=== PATIENT | female | born 1955 | race Caucasian/White ===

== ENCOUNTER 2019-03-06 14:25 | Emergency (ER) | payer BC, MEDICARE ==
[~2019-03-06] VITALS: Ht 170.2 cm; Wt 127.0 kg
[~2019-03-06 14:25] MED LIST: ASPI-1153 PO; BENA20TA9 PO; CLOP75TA2 PO; METO-442 PO
[2019-03-06 14:30] VITALS: BP_SYST 155
--- NOTE | 2019-03-06 17:06 | NUR ---
Patient to ER bed 6 to gown for evaluation. Side rails up.
--- NOTE | 2019-03-06 17:10 | NUR ---
Patient arrived in the ED accompanied by son c/o pain on her back, bilateral shoulder and neck that started 2 days ago. Denied any chest pain, headache, or shortness of breath. Denied fevers, chills, nausea, or vomiting. Patient is alert and oriented x4, respirations even and unlabored, speaking in full sentences, and ambulating with a steady gait. VSS, pain level 3/10. Son at bedside. Informed of approximate wait time. Instructed to notify ED staff for any changes in condition or worsening of symptoms. Patient verbalized understanding.
--- NOTE | 2019-03-06 17:24 | NUR ---
ER Dr. Shay at bedside examining patient.
[2019-03-06] MEDS ORDERED: KETOROLAC TROMETHAMINE 60 MG/2 ML VIAL IM ONE (17:30)
--- NOTE | 2019-03-06 17:33 | NUR ---
Administered Toradol 60mg IM as ordered by Dr. Shay. Patient tolerated the medications well. See eMAR for details.
--- NOTE | 2019-03-06 17:45 | NUR ---
X-ray done at bedside as ordered by Dr. Shay. Patient tolerated the procedure well.
--- NOTE | 2019-03-06 18:20 | NUR ---
ER Dr. Shay at bedside giving discharge instructions to the patient.
--- NOTE | 2019-03-06 18:31 | NUR ---
Patient given written and verbal discharge instructions and verbalizes understanding. ER MD discussed with patient the results and treatment provided. Patient in stable condition. ID arm band removed. Rx of Tramadol and Soma given. Patient educated on pain management and to follow up with PMD. Pain Scale 0/10. Opportunity for questions provided and answered. Medication side effect fact sheet provided.
[2019-03-06 18:46] VITALS: BP_SYST 134
== END 2019-03-06 18:46 | disposition home or self-care (01) ==
LOC: SED 14:25
DX: M54.5 Low back pain (principal); M54.6 Pain in thoracic spine; I11.0 Hypertensive heart disease with heart failure; I50.9 Heart failure, unspecified; I25.2 Old myocardial infarction; I48.91 Unspecified atrial fibrillation; Z88.0 Allergy status to penicillin; Z88.8 Allergy status to other drugs, medicaments and biological substances; Z88.6 Allergy status to analgesic agent; Z79.82 Long term (current) use of aspirin; Z79.899 Other long term (current) drug therapy
CPT/HCPCS: 72072; 72100; 93005; 96372; 99283; J1885

== ENCOUNTER 2019-03-15 15:34 | Inpatient (IN) | payer BC ==
[~2019-03-15] VITALS: Ht 170.2 cm; Wt 131.6 kg
[2019-03-15 15:40] VITALS: BP_SYST 142
--- NOTE | 2019-03-15 15:40 | NUR ---
Patient to ER bed to gown for evaluation. Side rails up.
--- NOTE | 2019-03-15 15:45 | NUR ---
Patient presents to ER C/O bilat feet pain. Patient A&Ox4, BIB BLS to ER, skin pink and warm, pain 11/23, denies N/V/D. Patient state bilat foot pain increased and unable to ambulate, called 911 by self from home
--- NOTE | 2019-03-15 15:45 | NUR ---
Note nonajeovany in ED - 03/15/19 at 1657 by CONRADO Patient presents to ER C/O Right shoulder pain. Patient arrived to ER BLS, A&Ox3, afebrile, skin pink and warm, pain 08/23, denies N/V/D. Patient stated he tripped over own feet, fell an cement at home.
--- NOTE | 2019-03-15 15:50 | NUR ---
ER Dr. Oviedo at bedside examining patient.
[2019-03-15] MEDS ORDERED: KETOROLAC TROMETHAMINE 60 MG/2 ML VIAL IM ONE (16:00)
[2019-03-15 16:31] LABS: BASOPHILS % (AUTO) 0.3 % (0.0-2.0); EOSINOPHILS % (AUTO) 0.1 % (0.0-4.0); HEMATOCRIT 36.4 % (36-48); HEMOGLOBIN 12.2 g/dL (12.0-16.0); LYMPHOCYTES # (AUTO) 0.7 K/uL (1.0-5.5); LYMPHOCYTES % (AUTO) 4.6 % (20.5-51.5); MEAN CORPUSCULAR HEMOGLOBIN 31 pg (27-31); MEAN CORPUSCULAR HGB CONC 34 % (32-36); MEAN CORPUSCULAR VOLUME 91 fL (79.0-98.0); MONOCYTES # (AUTO) 1.6 K/uL (0.0-1.0); MONOCYTES % (AUTO) 10.4 % (1.7-9.3); NEUTROPHILS % (AUTO) 84.6 % (40.0-70.0); PLATELET COUNT (AUTO) 229 K/uL (130-430); RED CELL DISTRIBUTION WIDTH 14.1 % (9.0-15.0); WHITE BLOOD COUNT (AUTO) 15.3 K/uL (4.8-10.8)
--- NOTE | 2019-03-15 16:46 | NUR ---
MEIDCATED THE PT W/ TORADOL PER MD ORDER. WILL REASSESS.
[2019-03-15 16:50] LABS: INR 1.1 (0.8-1.2); PROTHROMBIN TIME 10.6 SECS (9.5-12.5)
[2019-03-15 17:45] LABS: ERYTHROCYTE SEDIMENTATION RATE 50 MM/HR (0-20)
--- NOTE | 2019-03-15 18:01 | NUR ---
Patient to CT with RADIOLOGY STAFF VIA [facility].
[2019-03-15 18:13] LABS: CALCIUM 9.6 mg/dL (8.4-11.0); CREATININE 1.64 mg/dL (0.55-1.30); POTASSIUM 3.5 mmol/L (3.5-5.1)
[2019-03-15 18:17] LABS: ALBUMIN 3.3 g/dL (3.4-4.8); TOTAL BILIRUBIN 9.4 mg/dL (0.0-1.0); URIC ACID 9.7 mg/dL (2.4-7.0)
--- NOTE | 2019-03-15 19:20 | NUR ---
# 20 gauge angiocath placed to right arm. Use of asceptic technique. Opsite placed over site. Blood return noted. Blood for lab drawn from site. Flushed with 10 cc of normal saline. No evidence of infiltration noted. Patient tolerated well. Report given to Beverley CROUCH
--- NOTE | 2019-03-15 19:31 | NUR ---
Patient will be admitted to care of NOEMI. Admitted to MEDICAL SURGICAL unit. Awaiting bed placement. Belongings list completed. Complete and up to date summary report printed. SBAR report to be given at bedside with opportunity for questions.
[2019-03-15] MEDS ORDERED: LIP10 PO (19:34)
[2019-03-15] MEDS ORDERED: DILT60TA3 PO (19:34)
[2019-03-15] MEDS ORDERED: FURO20TA4 PO (19:34)
[2019-03-15 19:42] LABS: AMYLASE 21 U/L (0-100); LIPASE 50 U/L (73-393)
[2019-03-15] MEDS ORDERED: IBUP-1969 PO (20:02)
[2019-03-15] MEDS ORDERED: NITSL SL (20:02)
[2019-03-15] MEDS ORDERED: ASA81 PO (20:02)
[2019-03-15] MEDS ORDERED: POTA10TA15 PO (20:02)
[2019-03-15] MEDS ORDERED: ALBMDI INH (20:02)
[2019-03-15] MEDS ORDERED: CLOP75TA32 PO (20:02)
[2019-03-15] MEDS ORDERED: METO50TA7 PO (20:02)
--- NOTE | 2019-03-15 20:03 | NUR ---
Medication reconciliation completed with information provided by PT . Any prior medication reconciliation on file was reviewed and corrected.
--- NOTE | 2019-03-15 20:45 | NUR ---
Transfer to [facility]. IV present no sign or symptom of infiltration.
--- NOTE | 2019-03-15 21:05 | NUR ---
ADMISSION NOTE Received patient from ER via gurney. Patient admitted with diagnosis of PANCREATITIS. Patient oriented to hospital routine, call light, toileting and safety-patient verbalized understanding.
[2019-03-15 21:12] VITALS: BP_SYST 112
[2019-03-15 21:30] VITALS: BP_SYST 141
[2019-03-15] MEDS ORDERED: ALBUTEROL MDI INHALATION 8 GM INH INH SCH (21:45)
[2019-03-15] MEDS ORDERED: NITROGLYCERIN 0.4 MG TAB.SUBL SL SCH (21:45)
[2019-03-15] MEDS ORDERED: FLU VACC TS2019(65UP)/MF59C/PF 45 MCG/0.5 ML SYRINGE I.M. PRN (21:45)
[2019-03-15] MEDS ORDERED: ALBUTEROL SULFATE 0.083% 2.5 MG/3 ML VIAL.NEB INH PRN (21:45)
[2019-03-15] MEDS: NACL 0.9% 1,000 ML IV SCH (22:14)
--- NOTE | 2019-03-15 22:15 | NUR ---
IVF NS @ 100ML/HR STARTED ON HER LFA.DENIES ANY DISCOMFORT @ THIS TIME.
[2019-03-15] MEDS: LEVOFLOXACIN 500 MG/D5W 100 ML IV SCH (22:30)
[2019-03-15 22:51] VITALS: BP_SYST 112
--- NOTE | 2019-03-15 23:50 | NUR ---
GI Consultation Paged Reason for consultation: Liver Failure Was consult called: Yes Person who was notified: Jeny Consulting Physician: Shawanda Medrano: Dr Cordero is on-call Ring Barker Operator Ring Barker Operator Specialty: Gastroenterology Ordered By: Dr Whitt
--- NOTE | 2019-03-16 | NUR ---
RESTING COMFORTABLY IN NO ACUTE DISTRESS.
--- NOTE | 2019-03-16 | NUR ---
INSTRUCTED NPO POST MN .FOR US OF ABD ;VERBALIZED UNDERSTANDING OF THE INSTRUCTION GIVEN.
--- NOTE | 2019-03-16 02:00 | NUR ---
RESTING COMFORTABLY IN NO ACUTE DISTRESS.
--- NOTE | 2019-03-16 04:00 | NUR ---
ASLEEP.NO ACUTE DISTRESS NOTED.IVF INFUSING WELL.
--- NOTE | 2019-03-16 05:40 | NUR ---
SEEN & EXAMINED BY DR. WARNER & NEW ORDER WRITTEN.
--- NOTE | 2019-03-16 06:45 | NUR ---
ENDORSED RESTING COMFORTABLY IN NO ACUTE DISTRESS.IFV INFUSING WELL.SAFETY MAINTAINED.CALL LIGHT WITHIN REACH.
[2019-03-16 07:12] LABS: BASOPHILS % (AUTO) 0.5 % (0.0-2.0); EOSINOPHILS # (AUTO) 0.1 K/uL (0.0-0.4); HEMATOCRIT 31.3 % (36-48); HEMOGLOBIN 10.5 g/dL (12.0-16.0); LYMPHOCYTES # (AUTO) 0.7 K/uL (1.0-5.5); LYMPHOCYTES % (AUTO) 10.2 % (20.5-51.5); MEAN CORPUSCULAR HEMOGLOBIN 31 pg (27-31); MEAN CORPUSCULAR HGB CONC 34 % (32-36); MEAN CORPUSCULAR VOLUME 92 fL (79.0-98.0); MONOCYTES # (AUTO) 0.9 K/uL (0.0-1.0); MONOCYTES % (AUTO) 12.6 % (1.7-9.3); NEUTROPHILS # (AUTO) 5.6 K/uL (1.8-7.7); NEUTROPHILS % (AUTO) 75.7 % (40.0-70.0); PLATELET COUNT (AUTO) 111 K/uL (130-430); RED BLOOD CELL COUNT(AUTO) 3.41 MIL/uL (4.2-6.2); RED CELL DISTRIBUTION WIDTH 14.2 % (9.0-15.0); WHITE BLOOD COUNT (AUTO) 7.3 K/uL (4.8-10.8)
[2019-03-16 07:53] LABS: ALBUMIN 2.8 g/dL (3.4-4.8); CALCIUM 9.1 mg/dL (8.4-11.0); CREATININE 2.01 mg/dL (0.55-1.30); POTASSIUM 3.3 mmol/L (3.5-5.1)
[2019-03-16 08:00] VITALS: BP_SYST 147
[2019-03-16] MEDS: DILTIAZEM HCL 60 MG TABLET PO SCH ×2 (09:00→20:11)
[2019-03-16] MEDS: METOPROLOL SUCCINATE 50 MG TAB.SR.24H (TOPROL XL) PO SCH ×2 (09:00→20:12)
--- NOTE | 2019-03-16 09:21 | NUR ---
CONSULTATION PAGED/CALLED Reason for Consultation: [] CAD Person Who was Notified: [] DR MUNOZ Consulting Physician: [] DR MUNOZ News Reporter Specialty: [] CARDIOLOGY Ordering Physician: [] DR Norris FRANKLIN
--- NOTE | 2019-03-16 09:22 | NUR ---
CONSULTATION PAGED/CALLED Reason for Consultation: [] NUMBNESS OF FEET Person Who was Notified: [] RAY Consulting Physician: [] DR Cindy ELIAS Fiberglass Boat Finisher Specialty: [] NEUROLOGY Ordering Physician: [] DR Norris FRANKLIN
--- NOTE | 2019-03-16 09:57 | NUR ---
Nutrition Update Arsenio Scale 18 noted. Pt admitted for pancreatitis. Diet: clear liquid BMI: 43.4 kg/m2 RD to follow per nutrition care standards.
[2019-03-16 11:23] VITALS: BP_SYST 126
[2019-03-16] MEDS: CLOPIDOGREL BISULFATE 75 MG TABLET PO SCH (11:23)
[2019-03-16] MEDS: ASPIRIN 81 MG TAB.CHEW PO SCH (11:23)
[2019-03-16] MEDS: NACL 0.9% 1,000 ML IV SCH ×2 (11:27→18:05)
[2019-03-16 15:29] VITALS: BP_SYST 131
--- NOTE | 2019-03-16 15:53 | NUR ---
Dietitian Recommendations * Continue Clear Liquid diet and advance if/when medically appropriate to cardiac diet. LP, RD Please refer to Nutrition Assessment for details. Signed: 03/16/19 at 1555 by Lupe FARAH <Co-Signature Required> Co-Signed: 03/16/19 at [address] Addendum: 03/16/19 at 1555 by Lupe FARAH Amended: Links added.
--- NOTE | 2019-03-16 19:10 | NUR ---
OPENING NOTES Pt and endorsement received from day shift nurse. Pt is AAOx4, lying in bed. Pt on IVF with NS at 100ml/hr and infusing well on right forearm G20. Pt complaining of pain on both feet, will give pain med in a while. No signs of acute distress or SOB noted. Encouraged to use call light when needed. Safety precautions in place with 2 side rails up, wheels locked, and bed in lowest level. Call light with pt. Will continue to monitor.
[2019-03-16 20:07] VITALS: BP_SYST 144
[2019-03-16] MEDS: MORPHINE 2 MG/ML INJ. SYRINGE IVP PRN (20:13)
--- NOTE | 2019-03-16 20:13 | NUR ---
MED PASS All due meds given and pt tolerated well. Pt complained of pain on both feet with a scale of 6/10. Vital signs taken and recorded. Morphine 2mg IVP given as ordered. Educated on safety and side effects like dizziness, pt verbalized understanding. Will continue to monitor.
--- NOTE | 2019-03-16 20:27 | NUR ---
Sarah GASPAR - Dr. Whitt [phone], s/w Joyce
--- NOTE | 2019-03-16 20:33 | NUR ---
SPOKE TO DR. WARNER Spoke to Dr. Warner regarding pt complaining of itching all over her body with noted rashes or red spots on her skin. Dr. Warner ordered Benadryl 25mg PO Q4 PRN. Read back order and will carry out.
[2019-03-16] MEDS ORDERED: DIPHENHYDRAMINE HCL 25 MG CAPSULE PO PRN (20:45)
[2019-03-16] MEDS: LEVOFLOXACIN 500 MG/D5W 100 ML IV SCH (22:25)
--- NOTE | 2019-03-16 23:30 | NUR ---
ROUNDS Pt is resting in bed with both eyes closed, with visible chest rise and fall with non-labored breathing noted. IVF infusing well. No complains of pain and no signs of acute distress or SOB noted. Safety precautions in place and call light with pt. Will continue to monitor.
[2019-03-17 01:14] VITALS: BP_SYST 135
[2019-03-17] MEDS: NACL 0.9% 1,000 ML IV SCH ×3 (01:14→23:02)
--- NOTE | 2019-03-17 03:31 | NUR ---
ROUNDS Pt is resting in bed with both eyes closed, with visible chest rise and fall with non-labored breathing noted. Pt is easily arousable. IVF infusing well. No signs of acute distress or SOB noted. No needs at this time. Safety precautions in place and call light with pt. Will continue to monitor.
--- NOTE | 2019-03-17 06:14 | NUR ---
CLOSING NOTES Pt is resting in bed with both eyes closed, with visible chest rise and fall with non-labored breathing noted. IVF is infusing well. No complains of pain at this time. No signs of acute distress or SOB noted. All needs attended throughout the shift. Safety precautions maintained with 2 side rails up, wheels locked, and bed in lowest level. Call light with pt. Will endorse to day shift nurse.
[2019-03-17 08:00] VITALS: BP_SYST 131
--- NOTE | 2019-03-17 08:00 | NUR ---
Note Pt sitting up in bed eating her breakfast. No SOB/resp distress or severe lower leg pain/discomfort was noted at this time. IV in right forearm intact and patent infusing IVF's well. No needs noted at this time. Call light within reach.
[2019-03-17] MEDS: DILTIAZEM HCL 60 MG TABLET PO SCH ×2 (08:01→21:18)
[2019-03-17] MEDS: CLOPIDOGREL BISULFATE 75 MG TABLET PO SCH (08:01)
[2019-03-17] MEDS: ASPIRIN 81 MG TAB.CHEW PO SCH (08:01)
[2019-03-17] MEDS: METOPROLOL SUCCINATE 50 MG TAB.SR.24H (TOPROL XL) PO SCH ×2 (08:01→21:17)
[2019-03-17 08:10] LABS: HEPATITIS A AB, IgM Negative (Negative); HEPATITIS B CORE AB, IgM Negative (Negative); HEPATITIS B SURFACE AG Negative (Negative)
[2019-03-17 08:53] LABS: INR 1.1 (0.8-1.2); PROTHROMBIN TIME 10.7 SECS (9.5-12.5)
[2019-03-17 09:11] LABS: CEA 4.7 ng/mL (0.0-4.7)
[2019-03-17 11:24] VITALS: BP_SYST 115
--- NOTE | 2019-03-17 11:45 | NUR ---
Note Pt was assisted to BSC with 2 person moderate assist, and then back in bed. Pt did self hygiene care as much as she could. Dr Jose Oconnell came to pt's bedside for assessment and to answer questions/concerns that pt has. Pt back to bed, lower extremities elevated on pillow for comfort at this time. Pt next to nurses' station for close observation for needs and care. Call light within reach.
[2019-03-17] MEDS: MORPHINE 4 MG/ML INJ. SYRINGE IVP PRN (13:02)
[2019-03-17 15:19] VITALS: BP_SYST 121
--- NOTE | 2019-03-17 17:55 | NUR ---
Note Pt sitting up bed eating her dinner. No SOB/resp distress or pain/discomfort noted at this time. Pt was checked on q1' and PRN all shift for needs and care. Call light within reach.
[2019-03-17 20:00] VITALS: BP_SYST 134
--- NOTE | 2019-03-17 20:00 | NUR ---
Opening notes Pt AAOx4, VSS, afebrile. No s/s distress noted. IVF infusing at ordered rate R. FA 20G no s/s infiltration. Raphael heels floated on pillow per pt request and made comfortable. Call light/items within easy reach. Safety maintained. To monitor.
[2019-03-17] MEDS: LEVOFLOXACIN 500 MG/D5W 100 ML IV SCH (21:17)
[2019-03-17] MEDS: MORPHINE 2 MG/ML INJ. SYRINGE IVP PRN (21:23)
--- NOTE | 2019-03-17 21:23 | NUR ---
Pain Pt medicated with Morphine 2mg IVP for neuropathic pain to both legs. Raphael legs floated on pillow per pt request. To monitor.
[2019-03-17 23:34] VITALS: BP_SYST 117
--- NOTE | 2019-03-18 00:25 | NUR ---
Rounds Pt asleep. No s/s distress or discomfort noted. Call light within reach. To monitor.
[2019-03-18] MEDS: MORPHINE 2 MG/ML INJ. SYRINGE IVP PRN ×2 (01:53→14:18)
--- NOTE | 2019-03-18 01:53 | NUR ---
Pain Pt medicated for pain 6/10 on both ankles/legs Morphine 2mg IVP R. FA 20G clear and patent. Call light remains within reach. Bed low, locked, siderails up x3. To monitor.
--- NOTE | 2019-03-18 06:30 | NUR ---
Closing notes Pt awake, resting in bed, no s/s distress noted. IVF infusing at ordered rate R FA no s/s infiltration. Call light within reach. Bed low, locked, siderails up x2. To endorse to AM nurse.
[2019-03-18 07:47] VITALS: BP_SYST 128
[2019-03-18 07:50] LABS: BASOPHILS % (AUTO) 0.4 % (0.0-2.0); EOSINOPHILS # (AUTO) 0.1 K/uL (0.0-0.4); EOSINOPHILS % (AUTO) 2.2 % (0.0-4.0); HEMATOCRIT 28.2 % (36-48); HEMOGLOBIN 9.4 g/dL (12.0-16.0); LYMPHOCYTES # (AUTO) 0.6 K/uL (1.0-5.5); LYMPHOCYTES % (AUTO) 11.7 % (20.5-51.5); MEAN CORPUSCULAR HEMOGLOBIN 31 pg (27-31); MEAN CORPUSCULAR HGB CONC 33 % (32-36); MEAN CORPUSCULAR VOLUME 92 fL (79.0-98.0); MONOCYTES # (AUTO) 0.5 K/uL (0.0-1.0); MONOCYTES % (AUTO) 10.1 % (1.7-9.3); NEUTROPHILS # (AUTO) 3.9 K/uL (1.8-7.7); NEUTROPHILS % (AUTO) 75.6 % (40.0-70.0); PLATELET COUNT (AUTO) 114 K/uL (130-430); RED BLOOD CELL COUNT(AUTO) 3.06 MIL/uL (4.2-6.2); RED CELL DISTRIBUTION WIDTH 15.2 % (9.0-15.0); WHITE BLOOD COUNT (AUTO) 5.2 K/uL (4.8-10.8)
--- NOTE | 2019-03-18 08:00 | NUR ---
IV in R FA#20, intact and patent at this time. No c/o abdominal pain/discomfort noted at this time. Instructed on POC. Call light in place, bed locked at the lowest position, will continue to monitor.
[2019-03-18 08:20] LABS: ALBUMIN 2.3 g/dL (3.4-4.8); CALCIUM 9.1 mg/dL (8.4-11.0); CREATININE 1.29 mg/dL (0.55-1.30); POTASSIUM 3.7 mmol/L (3.5-5.1)
[2019-03-18] MEDS: METOPROLOL SUCCINATE 50 MG TAB.SR.24H (TOPROL XL) PO SCH ×2 (09:03→20:16)
[2019-03-18] MEDS: DILTIAZEM HCL 60 MG TABLET PO SCH ×2 (09:04→20:15)
[2019-03-18] MEDS: CLOPIDOGREL BISULFATE 75 MG TABLET PO SCH (09:04)
[2019-03-18] MEDS: ASPIRIN 81 MG TAB.CHEW PO SCH (09:04)
[2019-03-18 09:18] LABS: C-REACTIVE PROTEIN QUANT 12.3 mg/dL (0-0.5)
[2019-03-18] MEDS: NACL 0.9% 1,000 ML IV SCH (09:42)
--- NOTE | 2019-03-18 09:43 | NUR ---
Patient finishes breakfast and receives morning meds. No signs of distress noted.
[2019-03-18 10:09] LABS: ERYTHROCYTE SEDIMENTATION RATE 62 MM/HR (0-20)
--- NOTE | 2019-03-18 11:00 | NUR ---
PATIENT IS TAKEN TO BATHROOM WITH ASSISTANCE. TOLERATED WITHOUT DISTRESS.
[2019-03-18 11:12] VITALS: BP_SYST 125
[2019-03-18 11:25] LABS: FERRITIN 300 ng/mL (15-150)
--- NOTE | 2019-03-18 13:20 | NUR ---
PATIENT FINISHED LUNCH. TOLERATED WITHOUT DISTRESS.
--- NOTE | 2019-03-18 13:46 | NUR ---
Spoke with Kristi (CM for HCP/PA/Juan). She said they ran patient's name, and patient is not PA. Called admitting to have benefits ran again. She has [employer] and Medicare. For some reason, PA comes up in patient info while Medicare info does not. RN aware. Will inform Cande Becerril, covering for case management today.
--- NOTE | 2019-03-18 14:34 | NUR ---
Case Management: HOSTING ENGINEER was called by [facility] staff that when HCP/PA caser shoe parts was called pt in not showing up under HCP/PA. [facility] reviewed [employer]; pt's insurance card states pt has [facility] [employer]. [facility] called retail sales associate seasonal [employer] ([phone]) who confirmed pt does have [employer] [facility] [employer]. [facility] has faxed pt's information to [facility] for review (f. [phone]) and for assistance with discharge planning. [facility] has alerted admitting department of medical group name. Addendum: 03/18/19 at 1458 by Cande Becerril LCSW HOSTING ENGINEER spoke with pt at bedside; pt is agreeable to SNF Placement. Pt states that she would like to go to [facility]; pt does not want to go to [facility]. [facility] has faxed updated order and updated facesheet to Landy with [employer] ([phone]).
[2019-03-18 15:18] VITALS: BP_SYST 138
--- NOTE | 2019-03-18 16:05 | NUR ---
Case management is at bedside discussing plan of transfer with patient.
[2019-03-18 18:18] VITALS: BP_SYST 138
--- NOTE | 2019-03-18 19:20 | NUR ---
INITIAL NOTES PATIENT IS STABLE AND RESTING IN BED. PATIENT SHOWS NO S/S OF RESPIRATORY DISTRESS. PATIENT SUCCESSFULLY DEMONSTRATES USAGE OF CALL LIGHT AT THIS TIME. PLAN OF CARE WAS DISCUSSED WITH PATIENT. BED IS LOCKED, ALARMED, AND AT THE LOWEST POSITION. FALL, SAFETY, ASPIRATION, AND RESPIRATORY PRECAUTIONS WILL BE IN PLACE THROUGHOUT THE SHIFT.
[2019-03-18 19:30] VITALS: BP_SYST 128
--- NOTE | 2019-03-18 21:20 | NUR ---
ROUNDING PATIENT IS STABLE AND TALKING TO FAMILY. FAMILY IS BY BEDSIDE. PATIENT SHOWS NO S/S OF RESPIRATORY DISTRESS. CALL LIGHT IN REACH. BED IS LOCKED, ALARMED, AND AT THE LOWEST POSITION.
[2019-03-18] MEDS: MORPHINE 4 MG/ML INJ. SYRINGE IVP PRN (21:50)
[2019-03-18] MEDS: LEVOFLOXACIN 500 MG/D5W 100 ML IV SCH (21:51)
--- NOTE | 2019-03-18 22:05 | NUR ---
CALLED IMAGINING TO CANCEL CT.
--- NOTE | 2019-03-18 23:20 | NUR ---
ROUNDING PATIENT IS SLEEPING. PATIENT IS STABLE. NO S/S OF RESPIRATORY DISTRESS NOTED. CALL LIGHT IN REACH. BED IS LOCKED, ALARMED, AND AT THE LOWEST POSITION.
[2019-03-19 00:19] VITALS: BP_SYST 135
--- NOTE | 2019-03-19 01:52 | NUR ---
ROUNDING PATIENT IS SLEEPING IN BED AND STABLE. NO S/S OF RESPIRATORY DISTRESS NOTED. CALL LIGHT IN REACH. BED IS LOCKED, ALARMED,AND AT THE LOWEST POSITION.
--- NOTE | 2019-03-19 03:34 | NUR ---
ROUNDING PATIENT IS SLEEPING IN BED AND STABLE. NO S/S OF RESPIRATORY DISTRESS NOTED. CALL LIGHT IN REACH. BED IS LOCKED, ALARMED,AND AT THE LOWEST POSITION.
--- NOTE | 2019-03-19 04:08 | NUR ---
ROUNDING PATIENT IS SLEEPING IN BED AND STABLE. NO S/S OF RESPIRATORY DISTRESS NOTED. CALL LIGHT IN REACH. BED IS LOCKED, ALARMED,AND AT THE LOWEST POSITION.
--- NOTE | 2019-03-19 06:18 | NUR ---
CLOSING NOTES PATIENT IS STABLE AND LAYING IN BED. NO S/S OF RESPIRATORY DISTRESS NOTED. CALL LIGHT IN REACH. BED IS LOCKED, ALARMED AND AT THE LOWEST POSITION. FALL, SAFETY, ASPIRATION, AND RESPIRATORY PRECAUTIONS HAS BEEN IN PLACE THROUGHOUT THE SHIFT. WILL CONTINUE TO MONITOR UNTIL REPORT IS GIVEN TO AM NURSE BY THE BEDSIDE.
--- NOTE | 2019-03-19 08:00 | NUR ---
RECEIVED AWAKE AND ALERT AND NO C/O DISCOMFORT.VSS.RESP EVEN AND UNLABORED.SATS 98% ON RA.TAKING DIET WELL.EDEMA NOTED TO BL FEET.UP TO BSC WITH ASSIST.WILL CONTINUE TO MONITOR AND CALL SONI IN PLACE.
[2019-03-19 08:07] LABS: AFP, TUMOR MARKER 1.4 ng/mL (0.0-8.3)
[2019-03-19 08:09] LABS: BASOPHILS % (AUTO) 0.5 % (0.0-2.0); EOSINOPHILS # (AUTO) 0.1 K/uL (0.0-0.4); EOSINOPHILS % (AUTO) 2.3 % (0.0-4.0); HEMOGLOBIN 9.2 g/dL (12.0-16.0); LYMPHOCYTES # (AUTO) 0.5 K/uL (1.0-5.5); LYMPHOCYTES % (AUTO) 9.3 % (20.5-51.5); MEAN CORPUSCULAR HEMOGLOBIN 31 pg (27-31); MEAN CORPUSCULAR HGB CONC 34 % (32-36); MEAN CORPUSCULAR VOLUME 91 fL (79.0-98.0); MONOCYTES # (AUTO) 0.5 K/uL (0.0-1.0); MONOCYTES % (AUTO) 10.3 % (1.7-9.3); NEUTROPHILS # (AUTO) 4.1 K/uL (1.8-7.7); NEUTROPHILS % (AUTO) 77.6 % (40.0-70.0); PLATELET COUNT (AUTO) 114 K/uL (130-430); RED BLOOD CELL COUNT(AUTO) 2.95 MIL/uL (4.2-6.2); RED CELL DISTRIBUTION WIDTH 15.3 % (9.0-15.0); WHITE BLOOD COUNT (AUTO) 5.3 K/uL (4.8-10.8)
[2019-03-19 08:16] LABS: ALBUMIN 2.1 g/dL (3.4-4.8); C-REACTIVE PROTEIN QUANT 9.5 mg/dL (0-0.5); CREATININE 1.15 mg/dL (0.55-1.30); POTASSIUM 3.7 mmol/L (3.5-5.1)
[2019-03-19 08:53] LABS: TOTAL BILIRUBIN 8.1 mg/dL (0.0-1.0)
[2019-03-19 08:54] LABS: ERYTHROCYTE SEDIMENTATION RATE 65 MM/HR (0-20)
[2019-03-19] MEDS: DILTIAZEM HCL 60 MG TABLET PO SCH (08:54)
[2019-03-19] MEDS: CLOPIDOGREL BISULFATE 75 MG TABLET PO SCH (08:54)
[2019-03-19] MEDS: METOPROLOL SUCCINATE 50 MG TAB.SR.24H (TOPROL XL) PO SCH (08:55)
[2019-03-19] MEDS: ASPIRIN 81 MG TAB.CHEW PO SCH (08:55)
--- NOTE | 2019-03-19 12:17 | NUR ---
Discharge Planning: ORTHO RN received call from Lupe with [facility] ([phone]); pt has been accepted at [facility] ([phone]). Lupe from [facility] is arranging gurney transportation for pt. Lupe will call back with ETA of [facility] transport.
[2019-03-19 12:26] VITALS: BP_SYST 127
[2019-03-19] MEDS: MORPHINE 2 MG/ML INJ. SYRINGE IVP PRN (14:36)
--- NOTE | 2019-03-19 15:15 | NUR ---
FOR TRANSFER TO SNF AND REPORT CALLED TO EMILY CROUCH PT BELONGINGS TAKEN AND REPORT ALSO GIVEN TO EMT AND TRANSFERRED BY MARIA DE JESUS.
[2019-03-19 15:17] VITALS: BP_SYST 130
[2019-03-20 12:06] LABS: ANTI-SMOOTH MUSCLE AB 6 Units (0-19); LIVER-KIDNEY MICROSOMAL AB 0.8 Units (0.0-20.0)
[2019-03-20 15:19] LABS: ANTI NUCLEAR AB WITH REFLEX Negative (Negative)
== END 2019-03-19 15:30 | DRG 441 ==
LOC: SED 15:34 → SMU 19:27
PROVIDERS: ADMIT Internal Medicine Hospice and Palliative Medicine; ATTEND Internal Medicine Hospice and Palliative Medicine
DX: K72.90 Hepatic failure, unspecified without coma (principal); K85.90 Acute pancreatitis without necrosis or infection, unspecified; E43 Unspecified severe protein-calorie malnutrition; N17.9 Acute kidney failure, unspecified; E87.1 Hypo-osmolality and hyponatremia; Z68.42 Body mass index [BMI] 45.0-49.9, adult; D64.9 Anemia, unspecified; D69.6 Thrombocytopenia, unspecified; E66.9 Obesity, unspecified; E86.0 Dehydration; G62.9 Polyneuropathy, unspecified; I48.91 Unspecified atrial fibrillation; I50.9 Heart failure, unspecified; R73.9 Hyperglycemia, unspecified; I11.0 Hypertensive heart disease with heart failure; I25.10 Atherosclerotic heart disease of native coronary artery without angina pectoris; I25.2 Old myocardial infarction; Z82.49 Family history of ischemic heart disease and other diseases of the circulatory system; Z79.899 Other long term (current) drug therapy; Z95.5 Presence of coronary angioplasty implant and graft; Z88.5 Allergy status to narcotic agent; Z88.0 Allergy status to penicillin; Z88.8 Allergy status to other drugs, medicaments and biological substances; Z91.041 Radiographic dye allergy status; Z79.82 Long term (current) use of aspirin
CPT/HCPCS: 36415; 71045; 76700-TC; 80053; 80074; 82105; 82150-TC; 82378; 82607; 82728; 83516; 83690-TC; 84443-TC; 84550-TC; 85025; 85610-TC; 85651-TC; 85730-TC; 86038; 86140; 86301; 86376; 86705; 86709; 87340; 93306; 93970; 96372; 97110-GP; 97112-GP; 97116-GP; 97530-GP; 99285; J1885; J1956; J2270; J7030; Q0163

== ENCOUNTER 2019-04-07 17:47 | Inpatient (IN) | payer BC ==
[~2019-04-07] VITALS: Ht 170.2 cm; Wt 131.5 kg
[~2019-04-07 17:47] MED LIST changes: +ALBMDI INH; +ASA81 PO; -ASPI-1153 PO; -BENA20TA9 PO; +CEFAZOLIN 2 GM IVPB PREMIX 50 ML IV ONE; -CLOP75TA2 PO; +CLOP75TA32 PO; +DILT60TA3 PO; +DIPHENHYDRAMINE INJ 50 MG/ML VIAL IV ONE; +FURO20TA4 PO; +GLUCAGON,HUMAN RECOMBINANT 1 MG VIAL IV ONE; +HYDROCORTISONE SOD SUCC 250 MG/2 ML IVP ONE; +IBUP-1969 PO; +LR 1,000 ML IV.SOLN IV ONE; -METO-442 PO; +METO50TA7 PO; +MIDAZOLAM HCL 5 MG/5 ML VIAL IVP ONE; +NITSL SL; +NS IRRIG SOLN 1000 ML IR ONE; +POTA10TA15 PO; +PROPOFOL 200MG/ 20ML VIAL (DIPRIVAN) IV ONE; +WATER FOR IRRIGATION,STERILE 1,000 ML IRRIG.SOLN IR ONE; +ePHEDrine sulfate 50 MG/ML VIAL IVP ONE
[2019-04-07 17:58] VITALS: BP_SYST 120
[2019-04-07] MEDS ORDERED: DIPH25CA83 PO (19:46)
[2019-04-07] MEDS ORDERED: MULT-976 PO (19:46)
[2019-04-07] MEDS ORDERED: HYDR-4272 PO ×2 (19:46)
[2019-04-07] MEDS ORDERED: CALC-940 PO (19:46)
[2019-04-07] MEDS ORDERED: NACL 0.9% 1,000 ML IV ONE (20:15)
[2019-04-07 20:36] LABS: MEAN CORPUSCULAR HEMOGLOBIN 31 pg (27-31); MEAN CORPUSCULAR HGB CONC 33 % (32-36); MEAN CORPUSCULAR VOLUME 96 fL (79.0-98.0); PLATELET COUNT (AUTO) 277 K/uL (130-430); RED BLOOD CELL COUNT(AUTO) 2.16 MIL/uL (4.2-6.2); RED CELL DISTRIBUTION WIDTH 22.2 % (9.0-15.0); WHITE BLOOD COUNT (AUTO) 12.8 K/uL (4.8-10.8)
[2019-04-07 20:42] LABS: CALCIUM 8.4 mg/dL (8.4-11.0); CREATININE 1.3 mg/dL (0.55-1.30); POTASSIUM 3.7 mmol/L (3.5-5.1)
[2019-04-07 20:43] LABS: HEMOGLOBIN 6.8 g/dL (12.0-16.0)
[2019-04-07 20:44] LABS: HEMATOCRIT 20.7 % (36-48)
[2019-04-07 20:47] LABS: ALBUMIN 1.9 g/dL (3.4-4.8)
[2019-04-07 20:53] LABS: TOTAL BILIRUBIN 16.5 mg/dL (0.0-1.0)
[2019-04-07 20:56] LABS: BAND % (MANUAL) 2 % (0-6); EOSINOPHILS % (MANUAL) 1 % (0-7); LYMPHOCYTES % (MANUAL) 14 % (20-46); METAMYELOCYTES % 1 % (0-0); MONOCYTES % (MANUAL) 5 % (0-11)
[2019-04-07] MEDS ORDERED: MORPHINE 4 MG/ML INJ. SYRINGE IVP ONE (21:00)
[2019-04-07 21:03] LABS: PROTHROMBIN TIME 45.8 SECS (9.5-12.5)
[2019-04-07 21:04] LABS: INR 4.7 (0.8-1.2)
[2019-04-07 21:07] LABS: BASOPHILS % (MANUAL) 0 % (0-2)
[2019-04-07] MEDS ORDERED: METOCLOPRAMIDE HCL 10 MG/2 ML VIAL IVP PRN ×2 (23:30)
[2019-04-07] MEDS ORDERED: ONDANSETRON HCL 4 MG/2 ML VIAL IVP PRN ×2 (23:30)
[2019-04-08] VITALS (13 sets, daily range): BP systolic 112–137
[2019-04-08] MEDS ORDERED: DIPHENHYDRAMINE HCL 25 MG CAPSULE PO PRN (02:30)
[2019-04-08] MEDS ORDERED: NACL 0.9% 1,000 ML IV SCH (02:31)
[2019-04-08] MEDS ORDERED: ALBUTEROL SULFATE 0.083% 2.5 MG/3 ML VIAL.NEB INH PRN (02:45)
[2019-04-08] MEDS ORDERED: ONDANSETRON HCL 4 MG/2 ML VIAL IVP PRN (02:45)
[2019-04-08] MEDS ORDERED: PANTOPRAZOLE SODIUM 40 MG/VIAL (PROTONIX) IVP SCH (02:45)
[2019-04-08] MEDS ORDERED: PHYTONADIONE Non-Formulary 5 MG TABLET PO ONE (02:45)
[2019-04-08] MEDS ORDERED: PHYTONADIONE (Vitamin K) Oral Solution PO ONE (03:00)
[2019-04-08] MEDS: DILTIAZEM HCL 60 MG TABLET PO SCH ×2 (09:40→20:56)
[2019-04-08] MEDS: METOPROLOL SUCCINATE 50 MG TAB.SR.24H (TOPROL XL) PO SCH ×2 (09:41→20:50)
[2019-04-08] MEDS: D5NS 1,000 ML IV SCH ×2 (09:46→20:45)
[2019-04-08 09:57] LABS: MEAN CORPUSCULAR HEMOGLOBIN 31 pg (27-31); MEAN CORPUSCULAR HGB CONC 33 % (32-36); MEAN CORPUSCULAR VOLUME 93 fL (79.0-98.0); PLATELET COUNT (AUTO) 192 K/uL (130-430); RED CELL DISTRIBUTION WIDTH 21.3 % (9.0-15.0); WHITE BLOOD COUNT (AUTO) 9.5 K/uL (4.8-10.8)
[2019-04-08 10:14] LABS: PROTHROMBIN TIME 35.3 SECS (9.5-12.5)
[2019-04-08 10:15] LABS: INR 3.6 (0.8-1.2)
[2019-04-08 10:16] LABS: ALBUMIN 1.7 g/dL (3.4-4.8); CALCIUM 7.9 mg/dL (8.4-11.0); CREATININE 1.14 mg/dL (0.55-1.30); TOTAL BILIRUBIN 14.7 mg/dL (0.0-1.0)
[2019-04-08 10:22] LABS: HEMATOCRIT 20.5 % (36-48); HEMOGLOBIN 6.8 g/dL (12.0-16.0)
[2019-04-08 10:53] LABS: BASOPHILS % (MANUAL) 0 % (0-2); EOSINOPHILS % (MANUAL) 4 % (0-7); LYMPHOCYTES % (MANUAL) 7 % (20-46); MONOCYTES % (MANUAL) 10 % (0-11)
[2019-04-08] MEDS ORDERED: MORPHINE 2 MG/ML INJ. SYRINGE IVP ONE ×2 (17:30)
[2019-04-08] MEDS ORDERED: PHYTONADIONE 10 MG/ML AMP SUBCUT ONE (18:15)
[2019-04-08] MEDS ORDERED: OCTREOTIDE ACETATE 1,250 MCG in NS 243.75 ML IV SCH (19:15)
[2019-04-08] MEDS ORDERED: PANTOPRAZOLE SODIUM 40 MG/VIAL (PROTONIX) ONE ×2 (20:45→20:46)
[2019-04-08] MEDS: PANTOPRAZOLE SODIUM 40 MG in NS 50 ML IV SCH (20:45)
[2019-04-08 20:58] LABS: BASOPHILS # (AUTO) 0.1 K/uL (0.0-0.2); BASOPHILS % (AUTO) 0.6 % (0.0-2.0); EOSINOPHILS # (AUTO) 0.3 K/uL (0.0-0.4); EOSINOPHILS % (AUTO) 2.7 % (0.0-4.0); HEMATOCRIT 28.8 % (36-48); HEMOGLOBIN 9.6 g/dL (12.0-16.0); LYMPHOCYTES # (AUTO) 1.2 K/uL (1.0-5.5); LYMPHOCYTES % (AUTO) 9.9 % (20.5-51.5); MEAN CORPUSCULAR HEMOGLOBIN 31 pg (27-31); MEAN CORPUSCULAR HGB CONC 34 % (32-36); MONOCYTES # (AUTO) 0.9 K/uL (0.0-1.0); MONOCYTES % (AUTO) 6.8 % (1.7-9.3); PLATELET COUNT (AUTO) 204 K/uL (130-430); RED BLOOD CELL COUNT(AUTO) 3.15 MIL/uL (4.2-6.2); RED CELL DISTRIBUTION WIDTH 19.4 % (9.0-15.0); WHITE BLOOD COUNT (AUTO) 12.5 K/uL (4.8-10.8)
[2019-04-08 21:00] LABS: MEAN CORPUSCULAR VOLUME 91 fL (79.0-98.0)
[2019-04-08] MEDS: MORPHINE 2 MG/ML INJ. SYRINGE IVP PRN (22:03)
[2019-04-09] VITALS (24 sets, daily range): BP systolic 106–151
[2019-04-09] MEDS: MORPHINE 2 MG/ML INJ. SYRINGE IVP PRN ×3 (01:07→20:39)
[2019-04-09] MEDS ORDERED: PANTOPRAZOLE SODIUM 40 MG/VIAL (PROTONIX) ONE ×2 (01:45→05:12)
[2019-04-09] MEDS: PANTOPRAZOLE SODIUM 40 MG in NS 50 ML IV SCH ×5 (01:49→20:39)
[2019-04-09] MEDS: D5NS 1,000 ML IV SCH ×2 (05:06→16:19)
[2019-04-09 05:57] LABS: BASOPHILS # (AUTO) 0.1 K/uL (0.0-0.2); BASOPHILS % (AUTO) 0.4 % (0.0-2.0); EOSINOPHILS # (AUTO) 0.3 K/uL (0.0-0.4); EOSINOPHILS % (AUTO) 2.1 % (0.0-4.0); HEMATOCRIT 28.5 % (36-48); HEMOGLOBIN 9.4 g/dL (12.0-16.0); LYMPHOCYTES # (AUTO) 1.1 K/uL (1.0-5.5); LYMPHOCYTES % (AUTO) 9.3 % (20.5-51.5); MEAN CORPUSCULAR HEMOGLOBIN 31 pg (27-31); MEAN CORPUSCULAR HGB CONC 33 % (32-36); MEAN CORPUSCULAR VOLUME 93 fL (79.0-98.0); MONOCYTES # (AUTO) 0.9 K/uL (0.0-1.0); MONOCYTES % (AUTO) 7.5 % (1.7-9.3); NEUTROPHILS # (AUTO) 9.6 K/uL (1.8-7.7); NEUTROPHILS % (AUTO) 80.7 % (40.0-70.0); PLATELET COUNT (AUTO) 177 K/uL (130-430); RED BLOOD CELL COUNT(AUTO) 3.07 MIL/uL (4.2-6.2); RED CELL DISTRIBUTION WIDTH 20.1 % (9.0-15.0); WHITE BLOOD COUNT (AUTO) 11.9 K/uL (4.8-10.8)
[2019-04-09 06:22] LABS: ALBUMIN 1.7 g/dL (3.4-4.8); CALCIUM 8.1 mg/dL (8.4-11.0); CREATININE 1.16 mg/dL (0.55-1.30); POTASSIUM 3.9 mmol/L (3.5-5.1)
[2019-04-09 06:31] LABS: TOTAL BILIRUBIN 19.4 mg/dL (0.0-1.0)
[2019-04-09 06:37] LABS: INR 1.1 (0.8-1.2); PROTHROMBIN TIME 11.3 SECS (9.5-12.5)
[2019-04-09] MEDS ORDERED: MIDAZOLAM HCL 5 MG/5 ML VIAL ONE (07:34)
[2019-04-09] MEDS ORDERED: SIMETHICONE 40 MG/0.6 ML ML ONE (07:36)
[2019-04-09] MEDS: fentaNYL CITRATE/PF 100 MCG/2 ML AMP ONE ×3 (07:58→08:06)
[2019-04-09] MEDS: MIDAZOLAM HCL 5 MG/5 ML VIAL ONE ×4 (07:58→08:10)
[2019-04-09] MEDS: DILTIAZEM HCL 60 MG TABLET PO SCH ×2 (09:40→20:38)
[2019-04-09] MEDS: METOPROLOL SUCCINATE 50 MG TAB.SR.24H (TOPROL XL) PO SCH (09:40)
[2019-04-09 21:14] LABS: HEMOGLOBIN 8.7 g/dL (12.0-16.0); MEAN CORPUSCULAR HEMOGLOBIN 31 pg (27-31); MEAN CORPUSCULAR HGB CONC 32 % (32-36); MEAN CORPUSCULAR VOLUME 95 fL (79.0-98.0); PLATELET COUNT (AUTO) 165 K/uL (130-430); RED BLOOD CELL COUNT(AUTO) 2.83 MIL/uL (4.2-6.2); RED CELL DISTRIBUTION WIDTH 21.3 % (9.0-15.0); WHITE BLOOD COUNT (AUTO) 10.4 K/uL (4.8-10.8)
[2019-04-09 22:38] LABS: BAND % (MANUAL) 7 % (0-6); BASOPHILS % (MANUAL) 0 % (0-2); EOSINOPHILS % (MANUAL) 5 % (0-7); LYMPHOCYTES % (MANUAL) 4 % (20-46); MONOCYTES % (MANUAL) 1 % (0-11)
[2019-04-10] VITALS (20 sets, daily range): BP systolic 91–145
[2019-04-10] MEDS: PANTOPRAZOLE SODIUM 40 MG in NS 50 ML IV SCH ×5 (01:40→21:18)
[2019-04-10] MEDS: D5NS 1,000 ML IV SCH ×2 (01:40→12:10)
[2019-04-10] MEDS: MORPHINE 2 MG/ML INJ. SYRINGE IVP PRN ×5 (02:31→21:34)
[2019-04-10 05:54] LABS: BASOPHILS # (AUTO) 0.1 K/uL (0.0-0.2); EOSINOPHILS # (AUTO) 0.4 K/uL (0.0-0.4); EOSINOPHILS % (AUTO) 3.9 % (0.0-4.0); HEMATOCRIT 25.4 % (36-48); HEMOGLOBIN 8.4 g/dL (12.0-16.0); LYMPHOCYTES # (AUTO) 1.6 K/uL (1.0-5.5); LYMPHOCYTES % (AUTO) 14.7 % (20.5-51.5); MEAN CORPUSCULAR HEMOGLOBIN 31 pg (27-31); MEAN CORPUSCULAR HGB CONC 33 % (32-36); MEAN CORPUSCULAR VOLUME 94 fL (79.0-98.0); MONOCYTES # (AUTO) 0.8 K/uL (0.0-1.0); MONOCYTES % (AUTO) 7.2 % (1.7-9.3); NEUTROPHILS # (AUTO) 7.8 K/uL (1.8-7.7); NEUTROPHILS % (AUTO) 73.2 % (40.0-70.0); PLATELET COUNT (AUTO) 172 K/uL (130-430); RED CELL DISTRIBUTION WIDTH 20.6 % (9.0-15.0); WHITE BLOOD COUNT (AUTO) 10.7 K/uL (4.8-10.8)
[2019-04-10 07:49] LABS: PROTHROMBIN TIME 10.3 SECS (9.5-12.5)
[2019-04-10 07:53] LABS: ALBUMIN 1.8 g/dL (3.4-4.8); CALCIUM 8.1 mg/dL (8.4-11.0); CREATININE 0.97 mg/dL (0.55-1.30); POTASSIUM 3.4 mmol/L (3.5-5.1)
[2019-04-10 07:55] LABS: TOTAL BILIRUBIN 21.4 mg/dL (0.0-1.0)
[2019-04-10 08:37] LABS: BASOPHILS # (AUTO) 0.1 K/uL (0.0-0.2); BASOPHILS % (AUTO) 0.7 % (0.0-2.0); EOSINOPHILS # (AUTO) 0.2 K/uL (0.0-0.4); EOSINOPHILS % (AUTO) 2.4 % (0.0-4.0); HEMATOCRIT 25.7 % (36-48); HEMOGLOBIN 8.5 g/dL (12.0-16.0); LYMPHOCYTES # (AUTO) 1.3 K/uL (1.0-5.5); LYMPHOCYTES % (AUTO) 12.9 % (20.5-51.5); MEAN CORPUSCULAR HEMOGLOBIN 31 pg (27-31); MEAN CORPUSCULAR HGB CONC 33 % (32-36); MEAN CORPUSCULAR VOLUME 94 fL (79.0-98.0); MONOCYTES # (AUTO) 0.7 K/uL (0.0-1.0); MONOCYTES % (AUTO) 7.3 % (1.7-9.3); NEUTROPHILS # (AUTO) 7.5 K/uL (1.8-7.7); NEUTROPHILS % (AUTO) 76.7 % (40.0-70.0); PLATELET COUNT (AUTO) 165 K/uL (130-430); RED BLOOD CELL COUNT(AUTO) 2.74 MIL/uL (4.2-6.2); RED CELL DISTRIBUTION WIDTH 20.8 % (9.0-15.0); WHITE BLOOD COUNT (AUTO) 9.8 K/uL (4.8-10.8)
[2019-04-10] MEDS: DILTIAZEM HCL 60 MG TABLET PO SCH ×2 (09:00→21:16)
[2019-04-10] MEDS ORDERED: POTASSIUM CHLORIDE 20 MEQ/PKT PACKET PO ONE (09:45)
[2019-04-11] MEDS: MORPHINE 2 MG/ML INJ. SYRINGE IVP PRN ×3 (00:43→19:39)
[2019-04-11] MEDS: D5NS 1,000 ML IV SCH ×3 (00:50→15:02)
[2019-04-11 01:39] VITALS: BP_SYST 113; BP_SYST 137
[2019-04-11] MEDS: PANTOPRAZOLE SODIUM 40 MG in NS 50 ML IV SCH ×5 (03:07→22:08)
[2019-04-11 06:17] LABS: PROTHROMBIN TIME 10.2 SECS (9.5-12.5)
[2019-04-11] MEDS ORDERED: IOHEXOL 100 ML IV ONE (08:04)
[2019-04-11] MEDS ORDERED: ONDANSETRON HCL 4 MG/2 ML VIAL IVP PRN (08:30)
[2019-04-11] MEDS ORDERED: fentaNYL CITRATE/PF 100 MCG/2 ML AMP IVP PRN (08:30)
[2019-04-11] MEDS: DILTIAZEM HCL 60 MG TABLET PO SCH ×2 (09:00→22:03)
[2019-04-11 09:16] VITALS: BP_SYST 137
[2019-04-11 12:54] VITALS: BP_SYST 145
[2019-04-11 16:33] VITALS: BP_SYST 134
[2019-04-11 20:00] VITALS: BP_SYST 142
[2019-04-12 00:06] VITALS: BP_SYST 140
[2019-04-12] MEDS: D5NS 1,000 ML IV SCH ×3 (02:46→23:00)
[2019-04-12] MEDS: MORPHINE 2 MG/ML INJ. SYRINGE IVP PRN ×8 (02:50→23:30)
[2019-04-12] MEDS: PANTOPRAZOLE SODIUM 40 MG in NS 50 ML IV SCH ×5 (03:00→23:36)
[2019-04-12 08:00] VITALS: BP_SYST 149
[2019-04-12] MEDS: DILTIAZEM HCL 60 MG TABLET PO SCH ×2 (09:29→21:23)
[2019-04-12 10:25] LABS: CALCIUM 8.6 mg/dL (8.4-11.0); CREATININE 1.11 mg/dL (0.55-1.30); POTASSIUM 3.4 mmol/L (3.5-5.1)
[2019-04-12 10:30] LABS: ALBUMIN 1.9 g/dL (3.4-4.8)
[2019-04-12] MEDS ORDERED: LEVOFLOXACIN 500 MG/D5W 100 ML IV SCH (11:00)
[2019-04-12 11:17] LABS: BASOPHILS % (AUTO) 0.2 % (0.0-2.0); EOSINOPHILS % (AUTO) 0.2 % (0.0-4.0); HEMATOCRIT 30.3 % (36-48); HEMOGLOBIN 9.7 g/dL (12.0-16.0); LYMPHOCYTES # (AUTO) 1.3 K/uL (1.0-5.5); LYMPHOCYTES % (AUTO) 10.2 % (20.5-51.5); MEAN CORPUSCULAR HEMOGLOBIN 31 pg (27-31); MEAN CORPUSCULAR HGB CONC 32 % (32-36); MEAN CORPUSCULAR VOLUME 96 fL (79.0-98.0); MONOCYTES # (AUTO) 0.7 K/uL (0.0-1.0); MONOCYTES % (AUTO) 5.6 % (1.7-9.3); NEUTROPHILS % (AUTO) 83.8 % (40.0-70.0); PLATELET COUNT (AUTO) 206 K/uL (130-430); RED BLOOD CELL COUNT(AUTO) 3.17 MIL/uL (4.2-6.2); RED CELL DISTRIBUTION WIDTH 22.5 % (9.0-15.0); WHITE BLOOD COUNT (AUTO) 13.1 K/uL (4.8-10.8)
[2019-04-12 12:00] VITALS: BP_SYST 149
[2019-04-12] MEDS ORDERED: metroNIDAZOLE 500 mg/NS 100 ML IV ONE (12:00)
[2019-04-12 16:00] VITALS: BP_SYST 144
[2019-04-12 20:00] VITALS: BP_SYST 144
[2019-04-12] MEDS ORDERED: metroNIDAZOLE 500 mg/NS 100 ML IV SCH (22:00)
[2019-04-12 23:45] VITALS: BP_SYST 145
== END 2019-04-13 00:10 | disposition short-term general hospital (02) | DRG 377 ==
LOC: SED 17:47 → STU 23:32 → SIC 04-08 18:46 → STU 04-10 18:40
PROVIDERS: ADMIT Internal Medicine Hospice and Palliative Medicine; ATTEND Internal Medicine Hospice and Palliative Medicine
PROC: 30233N1 Transfusion of Nonautologous Red Blood Cells into Peripheral Vein, Percutaneous Approach (ICD-10-PCS; 2019-04-08)
PROC: 02HV33Z Insertion of Infusion Device into Superior Vena Cava, Percutaneous Approach (ICD-10-PCS; 2019-04-09)
PROC: B548ZZA Ultrasonography of Superior Vena Cava, Guidance (ICD-10-PCS; 2019-04-09)
PROC: 0DB78ZX Excision of Stomach, Pylorus, Via Natural or Artificial Opening Endoscopic, Diagnostic (ICD-10-PCS; 2019-04-09)
PROC: 30233K1 Transfusion of Nonautologous Frozen Plasma into Peripheral Vein, Percutaneous Approach (ICD-10-PCS; principal; 2019-04-09 08:00)
PROC: 0FJB8ZZ Inspection of Hepatobiliary Duct, Via Natural or Artificial Opening Endoscopic (ICD-10-PCS; 2019-04-11)
PROC: 0FJD8ZZ Inspection of Pancreatic Duct, Via Natural or Artificial Opening Endoscopic (ICD-10-PCS; 2019-04-11)
DX: K29.71 Gastritis, unspecified, with bleeding (principal); E43 Unspecified severe protein-calorie malnutrition; C22.1 Intrahepatic bile duct carcinoma; D68.9 Coagulation defect, unspecified; Z68.45 Body mass index [BMI] 70 or greater, adult; R18.8 Other ascites; C25.9 Malignant neoplasm of pancreas, unspecified; C78.7 Secondary malignant neoplasm of liver and intrahepatic bile duct; K29.81 Duodenitis with bleeding; I85.10 Secondary esophageal varices without bleeding; K75.81 Nonalcoholic steatohepatitis (NASH); E87.6 Hypokalemia; I48.91 Unspecified atrial fibrillation; K31.9 Disease of stomach and duodenum, unspecified; I50.9 Heart failure, unspecified; I11.0 Hypertensive heart disease with heart failure; D64.9 Anemia, unspecified; I25.10 Atherosclerotic heart disease of native coronary artery without angina pectoris; K74.60 Unspecified cirrhosis of liver; Z79.899 Other long term (current) drug therapy; Z88.5 Allergy status to narcotic agent; Z88.0 Allergy status to penicillin; Z88.8 Allergy status to other drugs, medicaments and biological substances; Z91.041 Radiographic dye allergy status; Z95.5 Presence of coronary angioplasty implant and graft; Z79.82 Long term (current) use of aspirin; Z79.02 Long term (current) use of antithrombotics/antiplatelets; I25.2 Old myocardial infarction
CPT/HCPCS: 36415; 43239; 71045; 74181; 74330-TC; 80053; 82150-TC; 83690-TC; 85007; 85025; 85027; 85610-TC; 85730-TC; 86886; 86900; 86901; 86920; 87081; 88305; 88312; 88313; 93005; 94640; 96361; 96374; 96375; 99285; C1751; C1769; C9113; G0378; J0690; J1200; J1610; J1720; J1956; J2250; J2270; J2354; J2704; J2765; J3010; J3430; J3490; J7030; J7040; J7042; J7050; J7060; J7120; P9021; P9059; Q0163; Q9967